=== PATIENT | female | born 1985 | race Two or more races ===

== ENCOUNTER 2022-07-23 06:58 | Emergency (ER) | payer MEDICAID, OTHER ==
[~2022-07-23] VITALS: Ht 170.2 cm; Wt 95.7 kg
[2022-07-23 08:02] LABS: Basophils # (auto) 0 10 ^3/uL (0-0.2); Basophils % (auto) 0.4 % (0.0-2.0); Eosinophils # (auto) 0.3 10 ^3/uL (0-0.8); Eosinophils % (auto) 2.8 % (0.0-7.0); Hematocrit 42.6 % (36.0-46.0); Lymphocytes # (auto) 2.1 10 ^3/uL (0.4-5.4); Lymphocytes % (auto) 18.7 % (10.0-50.0); Mean Corpuscular Hemoglobin 29.7 pg (28.0-32.0); Mean Corpuscular Hgb Conc. 32.7 g/dL (32.0-36.0); Mean Corpuscular Volume 90.7 fL (80.0-100.0); Monocytes # (auto) 0.7 10 ^3/uL (0-1.3); Monocytes % (auto) 6.2 % (0.0-12.0); Neutrophils # (auto) 8.1 10 ^3/uL (1.6-8.6); Neutrophils % (auto) 71.9 % (37.0-80.0); Nucleated Red Blood Cells % 0.1 %; Red Cell Distribution Width 13.1 % (11.8-14.3); White Blood Cell 11.2 10^3/uL (4.4-10.8)
[2022-07-23 08:20] LABS: Urine Bacteria FEW /hpf (None Seen); Urine Blood TRACE /uL (Negative); Urine Mucus FEW (None Seen); Urine Specific Gravity 1.028 (1.001-1.035); Urine WBC 1 /hpf (0 - 5)
[2022-07-23] MEDS ORDERED: cefTRIAXone SOD 1,000 MG VL IM ONE (09:00)
[2022-07-23] MEDS ORDERED: ACETAMINOPHEN 500 MG TAB PO ONE (09:00)
[2022-07-23 10:19] LABS: Albumin 3.8 g/dL (3.4-5.0); Calcium 8.6 mg/dL (8.5-10.1); Potassium 4.5 mmol/L (3.5-5.1)
[2022-07-23 10:23] LABS: BUN/Creatinine Ratio 26.4; Bilirubin, Total 0.8 mg/dL (0.2-1.0)
[2022-07-23] MEDS ORDERED: MAGN400S25 PO ×3 (11:49→11:59)
[2022-07-23] MEDS ORDERED: IBUP400T23 PO ×3 (11:49→11:59)
[2022-07-23] MEDS ORDERED: CEPH-510 PO ×3 (11:49→11:59)
[2022-07-23 11:55] VITALS: BP 121/83
== END 2022-07-23 12:01 | disposition home or self-care (01) ==
LOC: ER 06:58
DX: N12 Tubulo-interstitial nephritis, not specified as acute or chronic (principal); K59.00 Constipation, unspecified; K57.90 Diverticulosis of intestine, part unspecified, without perforation or abscess without bleeding; F17.210 Nicotine dependence, cigarettes, uncomplicated; Z79.1 Long term (current) use of non-steroidal anti-inflammatories (NSAID); Z79.899 Other long term (current) drug therapy
CPT/HCPCS: 36415; 74176; 80053; 81001; 81025; 83690; 85025; 96372; 99285; J0696

== ENCOUNTER 2023-01-23 07:15 | Emergency (ER) | payer MEDICAID ==
[~2023-01-23] VITALS: Ht 170.2 cm; Wt 86.0 kg
[~2023-01-23 07:15] MED LIST: CEPH-510 PO; IBUP1TAB4 PO; MAGN400S25 PO
[2023-01-23 07:57] VITALS: TEMP 98.6; O2SAT 98
[2023-01-23] MEDS ORDERED: MORPHINE SULFATE 4 MG/ML SYR/VIAL IM ONE ×2 (08:00→09:45)
[2023-01-23] MEDS ORDERED: ONDANSETRON ODT 4 MG TAB PO ONE (08:00)
[2023-01-23 10:41] VITALS: BP 118/72; PULSE 72; RESP 16
[2023-01-23] MEDS ORDERED: GABA-1308 PO (10:46)
[2023-01-23] MEDS ORDERED: MELO-335 PO (10:46)
[2023-01-23] MEDS ORDERED: HYDR-4902 PO (15:44)
== END 2023-01-23 10:55 | disposition home or self-care (01) ==
LOC: ER 07:15
DX: M54.12 Radiculopathy, cervical region (principal); Z98.890 Other specified postprocedural states; F17.210 Nicotine dependence, cigarettes, uncomplicated; Z79.1 Long term (current) use of non-steroidal anti-inflammatories (NSAID); Z79.899 Other long term (current) drug therapy
CPT/HCPCS: 73030; 96372; 99285; J2270; Q0162